=== PATIENT | male | born 1965 | race Caucasian/White ===

== ENCOUNTER 2020-09-14 10:43 | Outpatient (CLI) | payer BC, SELFPAY ==
[2020-09-14 12:11] LABS: Follicle Stimulating Hormone 18.6 mIU/mL (1.5-12.4); Luteinizing Hormone 9.7 mIU/mL (1.7-8.6); Procalcitonin 0.09 ng/mL (0-0.5)
[2020-09-14 14:26] LABS: Estradiol. 35.2 pg/mL (7.63-42.6)
== END 2020-09-14 10:44 | disposition home or self-care (01) ==
LOC: LAB 10:47
PROVIDERS: PCP Internal Medicine
DX: E29.1 Testicular hypofunction (principal)
CPT/HCPCS: 36415; 82670; 83001; 83002; 84145; 84403

== ENCOUNTER → 2021-01-26 12:07 | Outpatient (BNVA) | payer BC, SELFPAY | PROVIDERS: PCP Internal Medicine; Visit Provider Nurse Practitioner Family | DX: R50.9 Fever, unspecified (principal); R73.9 Hyperglycemia, unspecified; W57.XXXA Bitten or stung by nonvenomous insect and other nonvenomous arthropods, initial encounter; L30.9 Dermatitis, unspecified | CPT/HCPCS: 80053; 80061; 82607; 83036; 85025; 86618; 86666; 86757; 87071; 87880 ==